=== PATIENT | female | born 1995 | race Caucasian/White ===

== ENCOUNTER 2016-10-01 21:29 | Emergency (ER) | payer SELFPAY ==
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
== END 2016-10-01 23:35 | disposition home or self-care (01) ==
LOC: ER 21:29
DX: S16.1XXA Strain of muscle, fascia and tendon at neck level, initial encounter (principal); S09.90XA Unspecified injury of head, initial encounter; R51 Headache; R20.2 Paresthesia of skin; V49.49XA Driver injured in collision with other motor vehicles in traffic accident, initial encounter
CPT/HCPCS: 70450; 72125; 99283; 99284